=== PATIENT | female | born 1985 | race Caucasian/White ===

== ENCOUNTER 2019-03-30 21:31 | Emergency (ER) | payer OTHER, SELFPAY ==
[~2019-03-30] VITALS: Ht 157.5 cm; Wt 86.2 kg
[2019-03-30 22:35] VITALS: BP 123/59
--- NOTE | 2019-03-30 22:54 | PHYS DOC ---
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 Patient states she feels like she twisted her knee and has since had pain. Patient denies any [id number] medications prior to arrival patient denies any other injury. (CAMILLA LAWRENCE APRN) Review of Systems Review of Systems Musculoskeletal: Reports lt knee pain Integument: Denies bruising/swelling Neurologic: Denies focal weakness or sensory changes [] All other systems were reviewed and found to be within normal limits, except as documented in this note. (CAMILLA LAWRENCE APRN) Current Medications Current Medications Current Medications Medications (Trade) Dose Ordered Sig/Gema Start Time Stop Time Status Last Admin Dose Admin Ibuprofen (Motrin) 600 mg 1X ONCE 03/30/19 23:00 03/30/19 23:01 DC 03/30/19 23:04 600 MG (CAROLINA MCKEON MD) Allergies Allergies Allergies Coded Allergies Type Severity Reaction Last Updated Verified No Known Drug Allergies 12/02/15 No (CAROLINA MCKEON MD) Physical Exam Physical Exam Constitutional: Well developed, well nourished, mild distress/tearful, non-toxic appearance. [] HENT: Normocephalic, atraumatic, oropharynx moist, nose normal. [] Eyes: Pupils equal, conjunctiva normal, no discharge. [] Neck: Normal range of motion, supple Cardiovascular: Heart rate regular Lungs & Thorax: Resp. equal/nonlabored Skin: Warm, dry Extremities: No cyanosis, no clubbing, no edema. Lt anterior patella tenderness- no swelling/ecchymosis/palp. deformity. No tenderness lt knee- pt is able to bend/flex but does report pain w/movement. 2+ dorsalis pedis/posterior tibial bilat. Rt LE exam NL- full ROM Neurologic: Alert and oriented X 3, normal motor function, normal sensory function, no focal deficits noted. [] Psychologic: Affect normal, judgement normal, mood normal. [] (CAMILLA LAWRENCE APRN) Current Patient Data Vital Signs Vital Signs Date Time Temp Pulse Resp B/P (MAP) Pulse Ox O2 Delivery O2 Flow Rate FiO2 03/30/19 22:35 98.4 82 20 123/59 (80) 97 Room Air 98.4 (CAROLINA MCKEON MD) EKG EKG [] (CAMILLA LAWRENCE APRN) Radiology/Procedures Radiology/Procedures [] (CAMILLA LAWRENCE APRN) Course & Med Decision Making Course & Med Decision Making Pertinent Imaging studies reviewed. (See chart for details) Xrays were viewed by Dr. Mckeon with no obvious displaced fxs/dislocation. Went to pt's room to discuss plans for mindi wrap/knee immobilizer/crutches and pt was not in room. RN reports pt wasn't in waiting room and didn't inform staff she was leaving without her xray results/tx/re-eval. of lt knee or discharge instructions. (CAMILLA LAWRENCE APRN) Course & Med Decision Making Staff Physician Addendum: I was working in the ER during the course of this patient's visit. I was available for consultation as needed, but I was not directly involved in the care of this patient. (CAROLINA MCKEON MD) Dragon Disclaimer Dragon Disclaimer This electronic medical record was generated, in whole or in part, using a voice recognition dictation system. (CAMILLA LAWRENCE APRN) Departure Departure Impression: Primary Impression: Knee pain, left Disposition: 01 HOME, SELF-CARE Condition: STABLE Referrals: NO PCP (PCP) ELIZABETH GARY MD Patient Instructions: Crutch Use, Knee Pain, Knee Wraps (Elastic Bandage) and RICE Additional Instructions: Ibuprofen and/or Tylenol as directed on container for pain as needed. Ice pack to affected area every 3-4 hours for 20-30 minutes at a time. If symptoms persist follow-up with an orthopedic doctor for reevaluation and further care. CAMILLA LAWRENCE APRN March 30, 2019 22:54 CAROLINA MCKEON MD April 06, 2019 06:30
[2019-03-30] MEDS ORDERED: IBUPROFEN 200 MG TABLET. PO ONE (23:00)
--- NOTE | 2019-03-30 23:33 | RAD ---
Three-view left knee radiographs 03/30/2019 CLINICAL HISTORY: Left knee pain for 2 hours. AP, lateral and oblique digital radiographs of the left knee were obtained. No fracture or dislocation of the left knee is seen. There is no radiographic evidence of a joint effusion. No significant degenerative changes are noted. IMPRESSION: Negative study. Electronically signed by: Corwin Powell MD (03/30/2019 11:30 PM) [facility]
== END 2019-03-31 00:05 | disposition home or self-care (01) ==
LOC: ER 21:31
DX: M25.562 Pain in left knee (principal); Z90.49 Acquired absence of other specified parts of digestive tract; Z98.890 Other specified postprocedural states
CPT/HCPCS: 73562; 99284